=== PATIENT | female | born 1990 | race Caucasian/White ===

== ENCOUNTER 2019-04-10 11:38 | Observation (INO) | payer OTHER ==
[2019-04-10 13:56] VITALS: BP 115/72; PULSE 83
== END 2019-04-10 13:20 | disposition home or self-care (01) ==
LOC: UNDOADMOB 11:38 → MED SURG 11:38 → UNDODISOB 13:20
PROVIDERS: ADMIT Family Medicine; ATTEND Family Medicine
DX: Z34.83 Encounter for supervision of other normal pregnancy, third trimester (principal)
CPT/HCPCS: 59025; 81003; G0378